=== PATIENT | female | born 1960 | race Caucasian/White ===

== ENCOUNTER → 2016-09-08 | Outpatient (CLI) | payer BC ==
[~2016-09-08] MED LIST: CELEXA40 MG PO; FLEXERIL 1010 MG/TAB PO; NORCO 325 MG-51 TAB PO; SYNTHROID 0.0.025 MG PO; ZYRTEC 10MG10 MG PO
== END ==
LOC: MC.RAD 14:16
DX: Z12.31 Encounter for screening mammogram for malignant neoplasm of breast (principal)

== ENCOUNTER 2017-11-18 18:14 | Inpatient (IN) | payer BC ==
[~2017-11-18] VITALS: Ht 162.6 cm; Wt 66.9 kg
[2017-11-18 18:54] LABS: HEMATOCRIT 45.4 % (37.0-47.0); HEMOGLOBIN 15.2 g/dl (12.5-16.0); MEAN CELL VOLUME 94 fl (80.0-100.0); MEAN CORPUSCULAR HEMOGLOBIN 31 pg (27.0-31.0); MEAN CORPUSCULAR HGB CONC 34 g/dl (33.0-37.0); MEAN PLATELET VOLUME 10.4 fl (7.4-10.4); PLATELET COUNT 328 K/mm3 (130-400); RED BLOOD COUNT 4.84 M/mm3 (4.10-5.30); REDCELL DISTRIBUTION WIDTH-CV 13.1 % (11.5-14.5)
[2017-11-18 19:17] LABS: ALBUMIN 4.1 gm/dL (3.5-5.0); BILIRUBIN,TOTAL 0.5 mg/dL (0.0-1.0); CALCIUM 9.4 mg/dL (8.4-10.2); CREATININE, serum 0.82 mg/dL (0.52-1.25)
[2017-11-18 19:18] LABS: BAND 16 % (0-10); BASOPHIL 2 % (0-2); LYMPHOCYTE 8 % (20.0-51.0); NEUTROPHILS 71 % (42.0-75.2); PLATELET ESTIMATE NORMAL (NORMAL)
[2017-11-18] MEDS ORDERED: SYNTHROID0.05 MG/TA PO (20:49)
[2017-11-18] MEDS ORDERED: MILK OF MA400 MG/52 PO (20:49)
[2017-11-18] MEDS ORDERED: COLACE 100100 MG/CAP PO (20:49)
[2017-11-18 21:30] VITALS: BP 110/81; PULSE 94; TEMP 97.1
[2017-11-18] MEDS ORDERED: ALBUTEROL S0.4 MG/ML PO (21:46)
[2017-11-18] MEDS ORDERED: BENADRYL50 MG PO (21:49)
[2017-11-18 21:52] LABS: COLLECTION METHOD CLEAN CATCH
[2017-11-18 22:05] LABS: MUCOUS Present /lpf; PH 5 (5-8); URINE APPEARANCE Clear; URINE BACTERIA None Seen /hpf; URINE BILIRUBIN Negative (NEGATIVE); URINE BLOOD Negative (NEGATIVE); URINE COLOR Yellow; URINE GLUCOSE Negative (NEGATIVE); URINE KETONE Trace (NEGATIVE); URINE LEUKOCYTE ESTERASE Negative (NEGATIVE); URINE NITRATE Negative (NEGATIVE); URINE PROTEIN(semi-quant) Negative (NEGATIVE); URINE RBC 0-2 /hpf; URINE UROBILINOGEN Negative (NEGATIVE)
[2017-11-18] MEDS ORDERED: ESTRACE0.1 MG/GM VG (23:22)
[2017-11-18 23:57] VITALS: BP 110/65; PULSE 110; TEMP 101.1
[2017-11-19] VITALS (7 sets, daily range): BP systolic 103–120; BP diastolic 53–68; PULSE 97–119; TEMP 97.5–100
[2017-11-19 10:20] LABS: BASO % 0.4 % (0.0-2.0); EOS # 0.1 (0.0-0.7); EOS % 0.5 % (0-4.0); GRAN # 7.3 (1.4-6.5); GRAN % 73.7 % (42.2-75.2); HEMATOCRIT 37.9 % (37.0-47.0); LYMPH # 1.4 (1.2-3.4); MEAN CELL VOLUME 94 fl (80.0-100.0); MEAN CORPUSCULAR HEMOGLOBIN 31 pg (27.0-31.0); MEAN CORPUSCULAR HGB CONC 34 g/dl (33.0-37.0); MEAN PLATELET VOLUME 10.8 fl (7.4-10.4); MONO # 1.1 (0.1-0.6); MONO % 10.8 % (1.7-9.3); PLATELET COUNT 268 K/mm3 (130-400); RED BLOOD COUNT 4.04 M/mm3 (4.10-5.30); REDCELL DISTRIBUTION WIDTH-CV 13.2 % (11.5-14.5)
[2017-11-19 10:23] LABS: HEMOGLOBIN 12.7 g/dl (12.5-16.0)
[2017-11-19 10:29] LABS: ALBUMIN 3.2 gm/dL (3.5-5.0); BILIRUBIN,TOTAL 0.5 mg/dL (0.0-1.0); CALCIUM 8.6 mg/dL (8.4-10.2); CREATININE, serum 0.8 mg/dL (0.52-1.25); POTASSIUM 3.3 mmol/L (3.4-5.0); TOTAL PROTEIN 6.4 gm/dL (6.4-8.2)
[2017-11-20] VITALS (7 sets, daily range): BP systolic 86–121; BP diastolic 42–70; PULSE 58–109; TEMP 98–98.7
[2017-11-21 03:54] VITALS: BP 119/66; PULSE 109; TEMP 98.6
[2017-11-21 07:32] VITALS: BP 128/66; PULSE 99; TEMP 98.7
[2017-11-21 07:50] LABS: CALCIUM 8.6 mg/dL (8.4-10.2); CREATININE, serum 0.77 mg/dL (0.52-1.25); POTASSIUM 4.2 mmol/L (3.4-5.0)
[2017-11-21 13:28] VITALS: BP 119/74; PULSE 111; TEMP 99
[2017-11-21 15:49] VITALS: BP 109/72; PULSE 103; TEMP 99.4
[2017-11-21 20:19] VITALS: BP 118/73; PULSE 107; TEMP 98.3
[2017-11-21 23:31] VITALS: BP 103/54; PULSE 101; TEMP 98.8
[2017-11-22 04:18] VITALS: BP 117/79; PULSE 113; TEMP 98.8
[2017-11-22 07:19] VITALS: BP 111/81; PULSE 123; TEMP 99.1
[2017-11-22 12:13] LABS: BASO # 0.1 (0.0-0.2); BASO % 0.8 % (0.0-2.0); EOS # 0.6 (0.0-0.7); EOS % 7.4 % (0-4.0); GRAN # 4.9 (1.4-6.5); GRAN % 56.5 % (42.2-75.2); HEMATOCRIT 37.4 % (37.0-47.0); HEMOGLOBIN 12.2 g/dl (12.5-16.0); LYMPH # 2.1 (1.2-3.4); MEAN CELL VOLUME 96 fl (80.0-100.0); MEAN CORPUSCULAR HEMOGLOBIN 31 pg (27.0-31.0); MEAN CORPUSCULAR HGB CONC 33 g/dl (33.0-37.0); MEAN PLATELET VOLUME 10.3 fl (7.4-10.4); PLATELET COUNT 243 K/mm3 (130-400); REDCELL DISTRIBUTION WIDTH-CV 13.6 % (11.5-14.5)
[2017-11-22 12:23] VITALS: BP 115/71; PULSE 110; TEMP 98.9
[2017-11-22 12:29] LABS: ALBUMIN 3.4 gm/dL (3.5-5.0); CALCIUM 8.8 mg/dL (8.4-10.2); CREATININE, serum 0.79 mg/dL (0.52-1.25); POTASSIUM 4.8 mmol/L (3.4-5.0)
[2017-11-22 12:45] LABS: PHOSPHOROUS 4.5 mg/dL (2.5-4.5)
[2017-11-22 15:57] VITALS: BP 107/69; PULSE 95; TEMP 98.4
[2017-11-22 19:41] VITALS: BP 128/68; PULSE 112; TEMP 97.9
[2017-11-23 00:01] VITALS: BP 118/67; PULSE 108; TEMP 99.9
[2017-11-23 03:52] VITALS: BP 110/61; PULSE 123; TEMP 100.2
[2017-11-23 07:29] VITALS: BP 117/71; PULSE 125; TEMP 98.8
[2017-11-23 11:30] VITALS: BP 137/73; PULSE 112; TEMP 97.9
[2017-11-23] MEDS ORDERED: MOTRIN 600600 MG/TAB PO (14:16)
[2017-11-23] MEDS ORDERED: PERCOCET 325 MG1 TA2 PO (14:16)
[2017-11-23] MEDS ORDERED: LIDODERM 5% PATC1 EA TP (14:17)
[2017-11-23 15:35] LABS: ALBUMIN 3.3 gm/dL (3.5-5.0); CALCIUM 8.8 mg/dL (8.4-10.2); CREATININE, serum 1.02 mg/dL (0.52-1.25); MAGNESIUM 1.9 mg/dL (1.6-2.3); PHOSPHOROUS 4.5 mg/dL (2.5-4.5); POTASSIUM 4.2 mmol/L (3.4-5.0)
[2017-11-23 16:42] VITALS: BP 111/72; PULSE 94; TEMP 98.8
[2017-11-23 19:07] VITALS: BP 114/81; PULSE 98; TEMP 98.5
[2017-11-24 00:29] VITALS: BP 114/62; PULSE 99; TEMP 98.3
[2017-11-24 04:46] VITALS: BP 131/78; PULSE 104; TEMP 98.2
[2017-11-24 07:44] VITALS: BP 128/58; PULSE 115; TEMP 98.4
[2017-11-24 11:34] VITALS: BP 117/71; PULSE 97; TEMP 98.7
[2017-11-24 21:15] LABS: COLLECTION METHOD CLEAN CATCH
[2017-11-24 21:27] LABS: PH 6 (5-8); SQUAMOUS EPITHELIAL None Seen /hpf; URINE APPEARANCE Clear; URINE BACTERIA None Seen /hpf; URINE BILIRUBIN Negative (NEGATIVE); URINE BLOOD 1+ (NEGATIVE); URINE COLOR Yellow; URINE GLUCOSE Negative (NEGATIVE); URINE KETONE Negative (NEGATIVE); URINE LEUKOCYTE ESTERASE Negative (NEGATIVE); URINE NITRATE Negative (NEGATIVE); URINE PROTEIN(semi-quant) Negative (NEGATIVE); URINE RBC 0-2 /hpf; URINE UROBILINOGEN Negative (NEGATIVE); URINE WBC 0-2 /hpf
== END 2017-11-24 16:58 | disposition home or self-care (01) | DRG 184 ==
LOC: COL.ER 18:14 → MEDICAL 19:55
PROVIDERS: Emergency Medicine; Surgery
DX: S22.42XA Multiple fractures of ribs, left side, initial encounter for closed fracture (principal); S06.0X1A Concussion with loss of consciousness of 30 minutes or less, initial encounter; S27.0XXA Traumatic pneumothorax, initial encounter; S42.102A Fracture of unspecified part of scapula, left shoulder, initial encounter for closed fracture; E03.9 Hypothyroidism, unspecified; S80.01XA Contusion of right knee, initial encounter; Z87.891 Personal history of nicotine dependence; V80.010A Animal-rider injured by fall from or being thrown from horse in noncollision accident, initial encounter
CPT/HCPCS: A9284; G0378; J1650; J2270; J2360; J2405; J2765; J3010; J7030; J7120; Q9967

== ENCOUNTER → 2017-12-06 | Outpatient (CLI) | payer BC ==
[~2017-12-06] MED LIST changes: +ALBUTEROL S0.4 MG/ML PO; +BENADRYL50 MG PO; +COLACE 100100 MG/CAP PO; +ESTRACE0.1 MG/GM VG; +LIDODERM 5% PATC1 EA TP; +MILK OF MA400 MG/52 PO; +MOTRIN 600600 MG/TAB PO; +PERCOCET 325 MG1 TA2 PO; +SYNTHROID0.05 MG/TA PO
== END ==
LOC: COL.PUL 13:56
DX: S22.49XA Multiple fractures of ribs, unspecified side, initial encounter for closed fracture (principal); S42.115D Nondisplaced fracture of body of scapula, left shoulder, subsequent encounter for fracture with routine healing; S27.0XXD Traumatic pneumothorax, subsequent encounter

== ENCOUNTER → 2021-06-26 | Outpatient (CLI) | payer OTHER | LOC: COL.RAD 06-25 07:30 | DX: R42 Dizziness and giddiness (principal) | CPT/HCPCS: A9585 ==

== ENCOUNTER 2022-12-23 20:47 | Emergency (ER) | payer OTHER ==
[~2022-12-23] VITALS: Ht 162.6 cm; Wt 69.1 kg
[2022-12-23 20:55] VITALS: TEMP 98.5
[2022-12-23] MEDS ORDERED: FLEXERIL 1010 MG/TAB PO (22:12)
[2022-12-23] MEDS ORDERED: LIDODERM 5% PATC1 EA TP (22:12)
[2022-12-23] MEDS ORDERED: TORADOL 10MG TA10 MG PO (22:12)
[2022-12-23 22:23] VITALS: BP 99/73; PULSE 83
== END 2022-12-23 22:23 | disposition home or self-care (01) ==
LOC: COL.ER 20:47
DX: S09.90XA Unspecified injury of head, initial encounter (principal); S16.1XXA Strain of muscle, fascia and tendon at neck level, initial encounter; S20.229A Contusion of unspecified back wall of thorax, initial encounter; H81.90 Unspecified disorder of vestibular function, unspecified ear; W01.0XXA Fall on same level from slipping, tripping and stumbling without subsequent striking against object, initial encounter; Y93.01 Activity, walking, marching and hiking

== ENCOUNTER 2023-04-29 22:26 | Emergency (ER) | payer OTHER ==
[~2023-04-29] VITALS: Ht 162.6 cm; Wt 70.5 kg
[~2023-04-29 22:26] MED LIST changes: +PREDNISONE50 MG PO; +TORADOL 10MG TA10 MG PO
[2023-04-29 22:29] VITALS: TEMP 97.9
[2023-04-29 23:17] LABS: HEMATOCRIT 46.4 % (37.0-47.0); HEMOGLOBIN 15.2 g/dl (12.5-16.0); MEAN CELL VOLUME 95 fl (80.0-100.0); MEAN CORPUSCULAR HEMOGLOBIN 31 pg (27-31); MEAN CORPUSCULAR HGB CONC 33 g/dl (33.0-37.0); MEAN PLATELET VOLUME 10.1 fl (7.4-10.4); PLATELET COUNT 436 K/mm3 (130-400); RED BLOOD COUNT 4.91 M/mm3 (4.10-5.30); REDCELL DISTRIBUTION WIDTH-CV 13.2 % (11.5-14.5)
[2023-04-29 23:28] LABS: ALANINE AMINOTRANSFERASE 29 U/L (0-55); ALBUMIN 4.1 gm/dL (3.4-4.8); ALKALINE PHOSPHATASE 84 U/L (40-150); ANION GAP 12 mmol/L (7-16); AST,SGOT 18 U/L (5-34); BILIRUBIN,TOTAL 0.4 mg/dL (0.2-1.2); BLOOD UREA NITROGEN 16 mg/dL (10-20); CALCIUM 9.5 mg/dL (8.4-10.2); CARBON DIOXIDE 22 mmol/L (23-31); CHLORIDE 104 mmol/L (98-107); CREATININE, serum 1.09 mg/dL (0.57-1.11); GLUCOSE 102 mg/dL (70-99); POTASSIUM 4.2 mmol/L (3.5-4.5); SODIUM 138 mmol/L (136-145)
[2023-04-29 23:38] LABS: TROPONIN-I < 0.010 ng/mL (0.00-0.033)
[2023-04-29 23:52] LABS: BAND 1 % (0-10); EOSINOPHIL 1 % (0-4); LYMPHOCYTE 23 % (20.0-51.0); NEUTROPHILS 69 % (42.0-75.2); PLATELET ESTIMATE NORMAL (NORMAL)
[2023-04-30 01:12] VITALS: BP 122/79; PULSE 114
== END 2023-04-30 01:12 | disposition home or self-care (01) ==
LOC: COL.ER 22:26
PROVIDERS: Emergency Medicine
DX: J45.909 Unspecified asthma, uncomplicated (principal)
CPT/HCPCS: J2060

== ENCOUNTER → 2023-08-17 | Outpatient (CLI) | payer OTHER | LOC: MC.RAD 15:30 | DX: Z12.31 Encounter for screening mammogram for malignant neoplasm of breast (principal) ==

== ENCOUNTER 2024-03-11 18:13 | Emergency (ER) | payer MEDICARE, BC ==
[~2024-03-11] VITALS: Ht 162.6 cm; Wt 68.2 kg
[2024-03-11 18:15] VITALS: TEMP 98.3
[2024-03-11] MEDS ORDERED: Haloperidol Lactate 5 MG/ML VIAL IV ONE (18:30)
[2024-03-11] MEDS ORDERED: LR 1,000 ML IV ONE (18:30)
[2024-03-11] MEDS ORDERED: LORazepam 2 MG/ML 1 ML VIAL IV ONE (18:30)
[2024-03-11 18:38] LABS: BASO # 0.1 K/mm3 (0.0-0.2); BASO % 0.8 % (0.0-2.0); EOS # 0.3 K/mm3 (0.0-0.7); EOS % 3.1 % (0.0-4.0); GRAN % 67.8 % (42.2-75.2); HEMATOCRIT 49.1 % (37.0-47.0); LYMPH # 1.8 K/mm3 (1.2-3.4); LYMPH % 19.8 % (20.0-51.0); MEAN CELL VOLUME 98 fl (80.0-100.0); MEAN CORPUSCULAR HEMOGLOBIN 32 pg (27-31); MEAN CORPUSCULAR HGB CONC 33 g/dl (33.0-37.0); MEAN PLATELET VOLUME 10.1 fl (7.4-10.4); MONO # 0.7 K/mm3 (0.1-0.6); PLATELET COUNT 333 K/mm3 (130-400); RED BLOOD COUNT 4.99 M/mm3 (4.10-5.30); REDCELL DISTRIBUTION WIDTH-CV 13.2 % (11.5-14.5)
[2024-03-11] MEDS ORDERED: Ketorolac 15 MG/ML VIAL IV ONE (18:45)
[2024-03-11 18:58] LABS: ALBUMIN 4.1 g/dL (3.4-4.8); BILIRUBIN,TOTAL 0.4 mg/dL (0.2-1.2); CALCIUM 10.1 mg/dL (8.4-10.2); CREATININE, serum 1.06 mg/dL (0.57-1.11); POTASSIUM 3.8 mEq/L (3.5-4.5); TOTAL PROTEIN 7.7 g/dl (6.2-8.1)
[2024-03-11 19:51] LABS: COLLECTION METHOD CLEAN CATCH
[2024-03-11 19:59] LABS: PH 6.5 (5.0-8.5); URINE APPEARANCE CLOUDY (CLEAR/HAZY); URINE BLOOD NEGATIVE (NEGATIVE); URINE COLOR YELLOW (YELLOW); URINE GLUCOSE NEGATIVE (NEGATIVE); URINE KETONE NEGATIVE (NEGATIVE); URINE NITRATE NEGATIVE (NEGATIVE); URINE PROTEIN(semi-quant) NEGATIVE (NEGATIVE); URINE UROBILINOGEN 0.2 E.U/dL (0.2-1.0)
[2024-03-11] MEDS ORDERED: CEPHALEXIN500 M1 PO (20:56)
[2024-03-11] MEDS ORDERED: cefTRIAXone 1 G in Water For Injection,Sterile 10 ML IV ONE (21:00)
[2024-03-11 21:11] VITALS: BP 110/69; PULSE 64
== END 2024-03-11 21:11 | disposition home or self-care (01) ==
LOC: COL.ER 18:13
PROVIDERS: Emergency Medicine
DX: R51.9 Headache, unspecified (principal)
CPT/HCPCS: J0696; J1630; J1885; J2060; J7120

== ENCOUNTER 2024-05-28 13:15 | Emergency (ER) | payer MEDICARE, BC ==
[~2024-05-28] VITALS: Ht 162.6 cm; Wt 70.0 kg
[~2024-05-28 13:15] MED LIST changes: +CEPHALEXIN500 M1 PO
[2024-05-28 13:22] VITALS: TEMP 98.1
[2024-05-28 15:19] LABS: BASO % 0.6 % (0.0-2.0); EOS # 0.2 K/mm3 (0.0-0.7); GRAN # 3.3 K/mm3 (1.4-6.5); GRAN % 46.7 % (42.2-75.2); HEMATOCRIT 40.4 % (37.0-47.0); HEMOGLOBIN 13.8 g/dl (12.5-16.0); LYMPH # 2.4 K/mm3 (1.2-3.4); LYMPH % 33.6 % (20.0-51.0); MEAN CELL VOLUME 97 fl (80.0-100.0); MEAN CORPUSCULAR HEMOGLOBIN 33 pg (27-31); MEAN CORPUSCULAR HGB CONC 34 g/dl (33.0-37.0); MEAN PLATELET VOLUME 10.1 fl (7.4-10.4); MONO # 1.1 K/mm3 (0.1-0.6); PLATELET COUNT 372 K/mm3 (130-400); RED BLOOD COUNT 4.18 M/mm3 (4.10-5.30); REDCELL DISTRIBUTION WIDTH-CV 13.8 % (11.5-14.5)
[2024-05-28 15:21] LABS: ALANINE AMINOTRANSFERASE 31 U/L (0-55); ALBUMIN 3.2 g/dL (3.4-4.8); ALKALINE PHOSPHATASE 89 U/L (40-150); ANION GAP 10 mmol/L (7-16); AST,SGOT 24 U/L (5-34); BILIRUBIN,TOTAL 0.3 mg/dL (0.2-1.2); BLOOD UREA NITROGEN 7 mg/dL (10-20); CALCIUM 8.8 mg/dL (8.4-10.2); CHLORIDE 111 mEq/L (98-107); CREATININE, serum 0.75 mg/dL (0.57-1.11); GLUCOSE 97 mg/dL (70-99); POTASSIUM 3.8 mEq/L (3.5-4.5); SODIUM 144 mEq/L (136-145); TOTAL PROTEIN 6.1 g/dl (6.2-8.1)
[2024-05-28 15:27] LABS: TROPONIN-I < 0.010 ng/mL (0.00-0.033)
[2024-05-28 16:15] VITALS: BP 109/70; PULSE 63
== END 2024-05-28 16:20 | disposition home or self-care (01) ==
LOC: COL.ER 13:15
PROVIDERS: Physician Assistant
DX: R07.9 Chest pain, unspecified (principal)

== ENCOUNTER 2024-07-11 12:02 | Observation (INO) | payer MEDICARE, BC ==
[~2024-07-11] VITALS: Ht 162.6 cm; Wt 64.9 kg
[~2024-07-11 12:02] MED LIST changes: -ALBUTEROL S0.4 MG/ML PO; +PROAIR HFA0.09 MG/AC IH
[2024-07-11] MEDS ORDERED: NS 1,000 ML IV ONE (15:30)
[2024-07-11 16:08] LABS: BASO % 0.6 % (0.0-2.0); EOS # 0.3 K/mm3 (0.0-0.7); GRAN # 3.4 K/mm3 (1.4-6.5); GRAN % 51.3 % (42.2-75.2); HEMATOCRIT 42.4 % (37.0-47.0); HEMOGLOBIN 14.3 g/dl (12.5-16.0); LYMPH # 2.2 K/mm3 (1.2-3.4); LYMPH % 32.8 % (20.0-51.0); MEAN CELL VOLUME 96 fl (80.0-100.0); MEAN CORPUSCULAR HEMOGLOBIN 33 pg (27-31); MEAN CORPUSCULAR HGB CONC 34 g/dl (33.0-37.0); MEAN PLATELET VOLUME 10.8 fl (7.4-10.4); MONO # 0.7 K/mm3 (0.1-0.6); MONO % 11.1 % (1.7-9.3); PLATELET COUNT 269 K/mm3 (130-400)
[2024-07-11 16:25] LABS: ALBUMIN 3.6 g/dL (3.4-4.8); BILIRUBIN,TOTAL 0.3 mg/dL (0.2-1.2); CALCIUM 8.5 mg/dL (8.4-10.2); CREATININE, serum 0.78 mg/dL (0.57-1.11); TOTAL PROTEIN 6.2 g/dl (6.2-8.1)
[2024-07-11 17:15] LABS: COLLECTION METHOD CLEAN CATCH
[2024-07-11 17:22] LABS: URINE APPEARANCE CLEAR (CLEAR/HAZY); URINE BLOOD NEGATIVE (NEGATIVE); URINE COLOR YELLOW (YELLOW); URINE GLUCOSE NEGATIVE (NEGATIVE); URINE KETONE NEGATIVE (NEGATIVE); URINE NITRATE NEGATIVE (NEGATIVE); URINE PROTEIN(semi-quant) NEGATIVE (NEGATIVE); URINE UROBILINOGEN 0.2 E.U/dL (0.2-1.0)
[2024-07-11] MEDS ORDERED: Ondansetron 4 MG/2 ML VIAL IV ONE (17:45)
[2024-07-11] MEDS ORDERED: Docusate Sodium 100 MG CAP PO PRN (18:30)
[2024-07-11] MEDS ORDERED: NS 1,000 ML IV SCH (18:30)
[2024-07-11] MEDS ORDERED: Ondansetron 4 MG/2 ML VIAL IV PRN (18:30)
[2024-07-11] MEDS ORDERED: Polyethylene Glycol 3350 17 GM PDS PO PRN (18:30)
[2024-07-11] MEDS ORDERED: Acetaminophen 325 MG TAB PO PRN (18:30)
[2024-07-11] MEDS ORDERED: NEURONTIN300 MG/CAP PO (18:59)
[2024-07-11] MEDS ORDERED: MYSOLINE 250MG250 MG PO (19:01)
[2024-07-11] MEDS ORDERED: LIPITOR 40MG TA40 MG PO (19:02)
[2024-07-11] MEDS ORDERED: MOBIC15 MG PO (19:02)
[2024-07-11] MEDS ORDERED: PRIL40 PO (19:03)
[2024-07-11] MEDS ORDERED: CELEXA40 MG PO (19:03)
[2024-07-11] MEDS ORDERED: HYDROCHLOROTH12.5 MG PO (19:06)
[2024-07-11 20:05] VITALS: BP 134/75; PULSE 82; TEMP 98.2
[2024-07-11] MEDS ORDERED: TRELEGY ELLIPT1 EAC1 IH (20:23)
[2024-07-11] MEDS ORDERED: FLONASEALLERGY NS (20:23)
--- NOTE | 2024-07-11 20:39 | NUR ---
PATIENT ARRIVED TO ROOM 356 VIA CART FROM ED. WAS ABLE TO AMBULATE FROM CART TO BED WITH ASSIST X1. SHE IS ALERT AND ORIENTED X4, ANSWERS ALL QUESTIONS APPROPRIATELY. GAIT IS VERY UNSTEADY BUT STATES THIS IS BASELINE FOR HER DUE TO CHRONIC CONDITION. INSTRUCTED TAXI PROPRIETOR LIGHT USE AND ENSURED CALL LIGHT WITHIN REACH. BED IS LOCKED AND IN LOW POSITION. FALL PRECAUTIONS IN PLACE.
[2024-07-11 21:06] VITALS: BP_SYST 134
[2024-07-11] MEDS ORDERED: Cetirizine 10 MG TAB PO PRN (21:45)
[2024-07-11] MEDS ORDERED: Gabapentin 300 MG CAP PO SCH (22:00)
[2024-07-11] MEDS ORDERED: Primidone 250 MG TAB PO SCH (22:00)
[2024-07-11 23:17] VITALS: BP 157/82; PULSE 81; TEMP 98
[2024-07-12] VITALS (7 sets, daily range): BP systolic 104–157; BP diastolic 66–94; PULSE 75–114; TEMP 97.3–98.2
--- NOTE | 2024-07-12 01:37 | NUR ---
RASHAAD More REQUESTED THIS RN TO COME INTO PATIENT ROOM PATIENT WAS HAVING TREMORS IN ALL EXTREMITIES THEY HAD BEEN AMBULATING TO RESTROOM AND SHE WAS NOW UNABLE TO GET UP OFF OF TOILET. THIS RN ASSESSED PATIENT AND SHE WAS ALERT AND ORIENTED X4 AND ABLE TO HOLD CONVERSATION AND FOLLOW DIRECTIONS. ASSISTED IN AMBULATING BACK TO BED. INFORMED HOSPITALIST, VALENTINA TREVINO APRN, NO NEW ORDERS AT THIS TIME. PATIENT STATES SHE HAS EXPERIENCED THIS PREVIOUSLY WITH ANESTHESIA.
[2024-07-12] MEDS ORDERED: Cyclobenzaprine 10 MG TAB PO PRN (02:30)
[2024-07-12] MEDS ORDERED: LORazepam 2 MG/ML 1 ML VIAL IV ONE (02:30)
[2024-07-12] MEDS ORDERED: LORazepam 2 MG/ML 1 ML VIAL IV PRN (02:30)
--- NOTE | 2024-07-12 03:07 | NUR ---
At 0207 staff heard bed alarm sound from patient room accompanied by a loud cry. Immediately when entering room, patient found convulsing on floor, unable to respond to staff questions . 020 call placed to hospitalist, Oksana Fierro APRN, house supervisors, and charge nurse present at bedside. 020, convulsing of extremities stopped and patient able to begin answering. 209, tremors began again in bilateral upper and lower extremities, patient again unable to respond to questioning x 30 seconds. 021, 2mg IV ativan given per verbal order by Oksana Fierro. Vital signs following tremors: BP 154/94, pulse 114, temperature 97.3, oxygen saturation was 88% on room air during tremor and immediately follow so patient placed on 2L O2 via nasal cannula at this time. Hospitalist ordered STAT CT of head and neck which is now complete and patient returned to room. Seizure pads placed on bed, bed locked and in low position with bed alarm on. Fall precautions in place.
[2024-07-12] MEDS ORDERED: Omeprazole 40 MG **** subs to Pantoprazole 40 MG PO SCH (07:00)
[2024-07-12] MEDS ORDERED: Budesonide Neb Susp 0.5 MG/2 ML AMP IH SCH (07:00)
--- NOTE | 2024-07-12 07:47 | NUR ---
Patient laying in bed, easily awakened with verbal command. A&Ox4. VSS. IV CDI, fluids infusing. Reports pain all over body, which patient reports is normal after the prior incident. No further needs expressed. Seizure and fall precautions in place. Call light within reach. Bed alarm on
[2024-07-12] MEDS ORDERED: Fluticasone/Umeclidinium/Vilanterol **** subs to Budesonide + Umeclid/Vilant IH SCH (09:00)
[2024-07-12] MEDS ORDERED: Citalopram 20 MG TAB PO SCH (09:00)
[2024-07-12] MEDS ORDERED: Fluticasone Nasal 50 MCG/Spray 16 GM BOTTLE NS SCH (09:00)
[2024-07-12] MEDS ORDERED: Umeclidinium/Vilanterol 62.5-25 MCG INHALATION/INHALER IH SCH (09:00)
[2024-07-12] MEDS ORDERED: FLEXERIL 1010 MG/TAB PO (10:07)
[2024-07-12] MEDS ORDERED: SINGULAIR 110 MG/TAB PO (10:08)
--- NOTE | 2024-07-12 12:49 | NUR ---
Discharge paperwork reviewed with the patient. Patient verbalized an understanding. IV removed, tip intact. Gauze and coban applied. Patient calling for a ride and then will get dressed. Call light within reach
--- NOTE | 2024-07-12 13:30 | NUR ---
PAtient taken by wheelchair to awaiting vehicle with and personal belongings. No further needs expressed.
--- NOTE | 2024-07-12 16:12 | NUR ---
Oil Laboratory Analyst met with patient to discuss discharge planning. Patient lives outside of [place] with her , Dagoberto (ph#[phone]) and sees Dr. Mancilla for primary care. Patient gets medications from [facility] and stated she is on a couple expensive medications, however is working with discount programs to make them more affordable. Patient uses a CPAP and also hiking poles for ambulation. Patient is able to drive but is very aware of her limitations. Patient does not drive in heavy traffic or at night. Patient stated she is independent with ADLS and would like to return home today. Patient does not have DPOA-HC and was not interested in completing one at this time. Patient's next of kin is her , Dagoberto. Patient had no concerns about returning home, in fact she wishes she was released from the ER last night. No unmet needs identified at this time. Discharge Plan: Home today
[2024-07-12] MEDS ORDERED: Atorvastatin 40 MG TAB PO SCH (21:00)
[2024-07-12] MEDS ORDERED: Gabapentin 300 MG CAP PO SCH (21:00)
[2024-07-12] MEDS ORDERED: Atorvastatin 20 MG TAB PO SCH (21:00)
== END 2024-07-12 13:30 | disposition home or self-care (01) ==
LOC: COL.ER 12:02 → MEDICAL 18:21 → EDBEDREQ 18:31 → MEDICAL 07-12 13:30
PROVIDERS: Emergency Medicine; ADMIT Hospitalist
DX: R25.9 Unspecified abnormal involuntary movements (principal); T41.1X5A Adverse effect of intravenous anesthetics, initial encounter; G11.9 Hereditary ataxia, unspecified; R29.2 Abnormal reflex; G62.9 Polyneuropathy, unspecified; F32.A Depression, unspecified; E03.9 Hypothyroidism, unspecified; K21.9 Gastro-esophageal reflux disease without esophagitis; G43.909 Migraine, unspecified, not intractable, without status migrainosus; H91.90 Unspecified hearing loss, unspecified ear; Z79.890 Hormone replacement therapy; Z87.891 Personal history of nicotine dependence; Z96.21 Cochlear implant status; Z98.890 Other specified postprocedural states
CPT/HCPCS: G0378; G0379; J2060; J2405; J7030